=== PATIENT | male | born 1950 | race Caucasian/White ===

== ENCOUNTER → 2017-07-06 | Day surgery (SDC) | payer OTHER ==
[2017-07-01 14:43] VITALS: BMI 25.4
[~2017-07-06] MED LIST: Diprivan 20 ML ONE; Dronedarone HCl 400 MG TAB ONE; Propofol 200 MG/20 ML VIAL ONE
[2017-07-06 07:36] LABS: #Eosinphils 0.3 thou/uL (0.0-0.7); #Lymphocytes 1.2 thou/uL (1.20-3.40); #Monocytes 0.7 thou/uL (0.11-0.59); #Neutrophils 5.7 thou/uL (1.40-6.50); %Basophils 0.3 % (0.0-1.0); %Eosinophils 3.2 % (0.0-10.0); %Lymphocytes 15.5 % (21.0-51.0); %Monocytes 8.6 % (0.0-10.0); Hematocrit 45.1 % (42.0-52.0); Mean Platelet Volume 6.8 fL (7.4-10.4); Red Blood Cell (RBC) Count 4.87 mill/uL (4.70-6.10); White Blood Cell (WBC) Count 7.9 thou/uL (4.8-10.8)
[2017-07-06 07:45] LABS: PTT 38.9 SEC (22.9-36.1); Prothrombin Time 21.3 SEC (12.0-14.7)
[2017-07-06 08:01] LABS: Anion Gap 13 mmol/L (10-20); BUN (Urea Nitrogen) 18 mg/dL (8.4-25.7); Calc. Creatinine Clearance 53 mL/min (70-130); Calcium 9.2 mg/dL (7.8-10.44); Carbon Dioxide 20 mmol/L (23-31); Chloride 104 mmol/L (98-107); Estimated GFR-MDRD 41
--- NOTE | 2017-07-06 10:04 | OP ---
DATE OF SERVICE: 07/06/2017 PROCEDURE: Cardioversion. REASON FOR PROCEDURE: Mr. Bang is a 67-year-old man with prior history of coronary artery disease, d iabetes, hyperlipidemia, also underwent pulmonary venous isolation 02/03/2017 for persistent atrial f ibrillation. Now he has recurrence of atrial arrhythmias. EKG is suggestive of atypical atrial flut ter. He is well anticoagulated with Xarelto without a fail. He is not currently on a rhythm medicat ion. PROCEDURE IN DETAIL: The patient received deep sedation by Anesthesia specialist with propofol. Aft er adequate level of sedation achieved, a synchronized 200 joule shock promptly converted the patient back to sinus rhythm. CONCLUSION: Successful cardioversion. PLAN: Continue Xarelto and patient has a prescription for Multaq 400 twice a day which should be ini tiated, especially if recurrent atrial fibrillation is noted. Monitor for bradycardia. Continue Xarelto again.
== END ==
LOC: CCL 07:01
PROVIDERS: ATTEND Internal Medicine Cardiovascular Disease
DX: I48.1 Persistent atrial fibrillation (principal); I25.10 Atherosclerotic heart disease of native coronary artery without angina pectoris; E11.9 Type 2 diabetes mellitus without complications; E78.5 Hyperlipidemia, unspecified; Z79.51 Long term (current) use of inhaled steroids; Z79.82 Long term (current) use of aspirin; Z79.84 Long term (current) use of oral hypoglycemic drugs; Z79.01 Long term (current) use of anticoagulants; Z79.899 Other long term (current) drug therapy; Z98.890 Other specified postprocedural states
CPT/HCPCS: 36415; 80048; 85025; 85610; 85730; 92960; 93005; 93010; J2704

== ENCOUNTER 2017-08-24 09:54 | Day surgery (SDC) | payer OTHER ==
[2017-08-21 13:26] VITALS: BMI 25.5
[2017-08-24 11:57] LABS: #Eosinphils 0.2 thou/uL (0.0-0.7); #Lymphocytes 1.3 thou/uL (1.20-3.40); #Monocytes 0.8 thou/uL (0.11-0.59); #Neutrophils 5.1 thou/uL (1.40-6.50); %Basophils 0.1 % (0.0-1.0); %Eosinophils 2.9 % (0.0-10.0); %Lymphocytes 17.3 % (21.0-51.0); %Monocytes 10.5 % (0.0-10.0); %Neutrophils 69.2 % (42.0-75.0); Mean Corpuscular HGB CONC 33.4 g/dL (32.0-36.0); Mean Corpuscular Hemoglobin 30.6 pg (27.0-31.0); Mean Corpuscular Volume 91.5 fl (80.0-94.0); Mean Platelet Volume 8.6 fL (7.4-10.4); Platelet Count 226 thou/uL (130-400); RBC Distribution Width 13.9 % (11.5-14.5); Red Blood Cell (RBC) Count 4.24 mill/uL (4.70-6.10); White Blood Cell (WBC) Count 7.4 thou/uL (4.8-10.8)
[2017-08-24 12:08] LABS: INR-International Normal Ratio 1.8; PTT 38.2 SEC (22.9-36.1)
[2017-08-24 13:15] LABS: Chloride 102 mmol/L (98-107); Potassium 5.1 mmol/L (3.5-5.1); Sodium 134 mmol/L (136-145)
[2017-08-24 13:16] LABS: Calcium 9.4 mg/dL (7.8-10.44); Glucose 100 mg/dL (80-115)
[2017-08-24 13:18] LABS: Anion Gap 11 mmol/L (10-20); Carbon Dioxide 26 mmol/L (23-31)
[2017-08-24 13:20] LABS: BUN (Urea Nitrogen) 16 mg/dL (8.4-25.7); Calc. Creatinine Clearance 46 mL/min (70-130); Estimated GFR-MDRD 34
[2017-08-24] MEDS ORDERED: PHENYLEPHRINE-NS 100 MCG/ML 10 ML SYRINGE ONE (14:42)
[2017-08-24] MEDS ORDERED: Diprivan 20 ML ONE (14:42)
--- NOTE | 2017-08-24 17:01 | OP ---
DATE OF PROCEDURE: 08/24/2017 CARDIOVERSION REPORT REFERRING PHYSICIAN: Murray Vásquez M.D. REASON FOR PROCEDURE: Mr. Bang is a 67-year-old man with prior history of persistent atrial fibrilla tion, underwent an ablation procedure in 05/2017, then later had a vascular surgery and his Multaq wa s changed to amiodarone, currently loading with amiodarone 200 mg twice a day. He is on anticoagulat ion with Xarelto without interruption, here for cardioversion. PROCEDURE IN DETAIL: The patient received propofol per Anesthesia specialist. After adequate level of sedation achieved, a synchronized 50 joule shock promptly converted the patient back to sinus rhyt hm. CONCLUSION: Successful cardioversion. PLAN: Continue amiodarone taper and will decrease the amiodarone to 200 mg a day now. Monitor for b radycardia and consider holding metoprolol in case heart rates below 50 beats per minute with symptom s. Continue Xarelto for anticoagulation. Routine followup in our office in 4-6 weeks.
--- NOTE | 2017-08-24 17:54 | EKG ---
Test Reason : PREOP CARDIOVERSION Blood Pressure : / mmHG Vent. Rate : 080 BPM Atrial Rate : 227 BPM P-R Int : 000 ms QRS Dur : 096 ms QT Int : 426 ms P-R-T Axes : 000 044 046 degrees QTc Int : 491 ms Atrial flutter with variable A-V block Prolonged QT Abnormal ECG When compared with ECG of 06-JUL-2017 07:29, (Unconfirmed) QRS duration has decreased Confirmed by NEFTALI OSMAN, SPetra ([id number]) on 08/24/2017 5:53:48 PM Referred By: [facility] Confirmed By:DR. Jocy LINDSAY MD
== END 2017-08-24 16:00 | disposition home or self-care (01) ==
LOC: CCL 09:54
PROVIDERS: ATTEND Internal Medicine Cardiovascular Disease
DX: I48.1 Persistent atrial fibrillation (principal); I48.92 Unspecified atrial flutter; E78.5 Hyperlipidemia, unspecified; E11.9 Type 2 diabetes mellitus without complications; I25.10 Atherosclerotic heart disease of native coronary artery without angina pectoris; Z79.84 Long term (current) use of oral hypoglycemic drugs; Z79.01 Long term (current) use of anticoagulants; Z79.82 Long term (current) use of aspirin; Z79.899 Other long term (current) drug therapy; Z95.818 Presence of other cardiac implants and grafts; Z98.890 Other specified postprocedural states
CPT/HCPCS: 36415; 80048; 85025; 85610; 85730; 92960; 93005; 93010; J2704

== ENCOUNTER 2017-11-03 19:12 | Observation (INO) | payer MEDICARE, OTHER ==
[2017-11-03 19:59] VITALS: BMI 25.2
[2017-11-03] MEDS ORDERED: Atorvastatin Calcium 20 MG TAB PO SCH (21:00)
[2017-11-03] MEDS ORDERED: Dextrose 5% in Water 1,000 ML IV PRN (21:07)
[2017-11-03] MEDS ORDERED: HumaLOG 300 UNITS/3 ML VIAL SC PRN (21:07)
[2017-11-03] MEDS ORDERED: Dextrose 50% Abboject 50 ML SYRINGE IVP PRN (21:07)
[2017-11-03] MEDS ORDERED: Metoprolol Tartrate 50 MG TAB PO SCH (21:15)
[2017-11-03] MEDS: Sodium Chloride 0.9% 1,000 ML IV SCH (21:57)
[2017-11-04] MEDS: Ubidecarenone 50 MG CAP PO SCH (04:37)
[2017-11-04] MEDS: Metoprolol Tartrate 50 MG TAB PO SCH ×2 (04:37→20:57)
[2017-11-04] MEDS: Atorvastatin Calcium 20 MG TAB PO SCH (04:37)
[2017-11-04] MEDS ORDERED: Lidocaine 1% (PF) 30 ML VIAL ONE (06:36)
[2017-11-04] MEDS ORDERED: Nitroglycerin 100MG/250ML BOT 250 ML ONE (07:07)
[2017-11-04] MEDS ORDERED: Verapamil 5 MG/2 ML VIAL ONE (07:07)
[2017-11-04] MEDS ORDERED: Heparin 25,000 units/D5W 0 ML ONE (07:07)
[2017-11-04] MEDS ORDERED: Midazolam HCl 2 mg/2 ml Vial ONE (07:25)
[2017-11-04] MEDS ORDERED: Heparin 10,000 UNITS/1 ML VIAL ONE (07:25)
[2017-11-04] MEDS ORDERED: Fentanyl 250 MCG/5 ML VIAL ONE (07:26)
[2017-11-04] MEDS ORDERED: Clopidogrel Bisulfate 300 MG TAB ONE (07:51)
[2017-11-04] MEDS ORDERED: Milk Of Magnesia 30 ML UDCUP PO PRN (08:34)
[2017-11-04] MEDS ORDERED: Mag-Al 1200 mg/1200 mg/30 ML UDCUP PO PRN (08:34)
[2017-11-04] MEDS ORDERED: Zolpidem Tartrate 5 MG TAB PO PRN (08:34)
[2017-11-04] MEDS ORDERED: traMADol HCl 50 MG TAB PO PRN (08:34)
[2017-11-04] MEDS ORDERED: Sodium Chloride 0.9% 1,000 ML IV SCH (08:45)
[2017-11-04] MEDS ORDERED: Aspirin 81 mg Enteric Coated Tablet PO SCH (09:00)
[2017-11-04] MEDS: Sodium Chloride 0.9% 1,000 ML IV SCH ×3 (09:51→18:36)
[2017-11-04] MEDS: Clopidogrel Bisulfate 75 MG TAB PO SCH (10:15)
[2017-11-04] MEDS ORDERED: cloNIDine 0.1 MG TAB PO PRN (11:51)
[2017-11-04] MEDS ORDERED: Furosemide 20 MG/2 ML VIAL SLOW IVP SCH (14:15)
--- NOTE | 2017-11-04 15:07 | ADD-OP ---
INDICATIONS: Mr. Bang appears to have a severe ostial disease. He had a 60 mm gradient noted with a 5-Mac[place] diagnostic catheter. He decided to proceed with intervention. His JR4 with side holes was then employed. Predilatation performed a 2.5 x 12 mm compliant balloon catheter. This was then fol lowed by 3.0 x 60 mm rebel stent. The patient was on novel oral anticoagulants. There continued to be dampening with the catheter. Post dilatation with 2.5 x 12 mm noncompliant balloon catheter. Thi s was inflated to 12 atmospheres. There continued to be dampening with a sidehole catheter. IVUS wa s then performed. IVUS revealed continued severe stenosis with recoiling and significant calcificati on. New 3.5 x 12 mm balloon catheter was then placed again at the ostium and inflated to 18 atmosphe res. There was much improvement in present. There was IVUS with significant improvement and a minim al luminal area greater than 5. I have decided not to proceed with any further balloon inflation due to heavy calcification in the area and risk of potential dissection. Patient did well during the pr ocedure.
[2017-11-05] MEDS: Acetaminophen/Codeine 30-300mg Tablet PO PRN ×2 (04:34→09:01)
[2017-11-05 06:23] LABS: #Eosinphils 0.3 thou/uL (0.0-0.7); #Lymphocytes 1.1 thou/uL (1.20-3.40); #Monocytes 0.9 thou/uL (0.11-0.59); #Neutrophils 4.6 thou/uL (1.40-6.50); %Basophils 0.3 % (0.0-1.0); %Eosinophils 4.1 % (0.0-10.0); %Lymphocytes 15.5 % (21.0-51.0); %Monocytes 13.5 % (0.0-10.0); %Neutrophils 66.7 % (42.0-75.0); Hemoglobin 12.5 g/dL (14.0-18.0); Mean Corpuscular HGB CONC 32.9 g/dL (32.0-36.0); Mean Corpuscular Hemoglobin 29.3 pg (27.0-31.0); Mean Corpuscular Volume 89.2 fl (80.0-94.0); Mean Platelet Volume 6.9 fL (7.4-10.4); Platelet Count 188 thou/uL (130-400); RBC Distribution Width 14.3 % (11.5-14.5); Red Blood Cell (RBC) Count 4.25 mill/uL (4.70-6.10); White Blood Cell (WBC) Count 6.9 thou/uL (4.8-10.8)
[2017-11-05 06:57] LABS: ALT (SGPT) 14 U/L (8-55); AST (SGOT) 15 U/L (5-34); Albumin 3.3 g/dL (3.4-4.8); Alkaline Phosphatase 87 U/L (40-150); Anion Gap 9 mmol/L (10-20); BUN (Urea Nitrogen) 16 mg/dL (8.4-25.7); Bilirubin, Total 0.5 mg/dL (0.2-1.2); Calc. Creatinine Clearance 64 mL/min (70-130); Calcium 8.8 mg/dL (7.8-10.44); Carbon Dioxide 24 mmol/L (23-31); Chloride 105 mmol/L (98-107); Estimated GFR-MDRD 52; Globulin 2.9 g/dL (2.4-3.5); Glucose 130 mg/dL (80-115); Potassium 4.4 mmol/L (3.5-5.1); Protein, Total 6.2 g/dL (5.8-8.1); Sodium 134 mmol/L (136-145)
[2017-11-05 08:25] VITALS: BP 133/62; TEMP 97.8
[2017-11-05] MEDS: Ubidecarenone 50 MG CAP PO SCH (09:00)
[2017-11-05] MEDS: Clopidogrel Bisulfate 75 MG TAB PO SCH (09:00)
[2017-11-05] MEDS: Atorvastatin Calcium 20 MG TAB PO SCH (09:01)
[2017-11-05] MEDS: Metoprolol Tartrate 50 MG TAB PO SCH (09:01)
--- NOTE | 2017-11-05 09:34 | DIS ---
DATE OF ADMISSION: 11/03/2017 DATE OF DISCHARGE: 11/05/2017 DISCHARGE DIAGNOSES: 1. Shortness of breath. 2. Coronary artery disease. 3. Previous stent placement. PROCEDURE: Coronary angiography with stent placement to the ostial right coronary artery with a 3 x 16 mm rebel stent post-dilated with a 3.5 noncompliant balloon catheter. COMPLICATIONS: None. ESTIMATED BLOOD LOSS: Less than 10 mL. HOSPITAL COURSE: Mr. Bang is a very pleasant 67-year-old gentleman who was admitted one day prior to the procedure for hydration. His initial creatinine was 1.7. His creatinine did decrease on the da y of the procedure. He underwent coronary angiography and was found to have patent stent present. Clayton whitman had severe disease present of the ostial right coronary artery with a 60 mm gradient. A catheter w ith side holes was employed. A 3.0 x 60 mm rebel stent was placed. There continued to be ventricula rization and dampening. Post-dilatation performed x2 with a 3.5 x 12 mm noncompliant balloon cathete r to 18 atmospheres. There was excellent angiographic result at the end of the study. IVUS was also employed. Mr. Bang did complain of shortness of breath after the procedure. He was given one dose of Lasix wit h improvement. He states there may be an anxiety component because of the day of discharge, he felt great. He states he feels better than he has been in the past. DISCHARGE MEDICATIONS: Flonase, Xarelto 20 mg q.a.m., loratadine, glipizide 10 mg b.i.d., lisinopril 5 mg b.i.d., Zantac as prescribed, metoprolol 50 mg b.i.d., atorvastatin 20 mg daily, aspirin [address], Plavix 75 q.a.m. CONDITION AT DISCHARGE: Stable.
--- NOTE | 2017-11-18 22:41 | EKG ---
Test Reason : POST STENT Blood Pressure : / mmHG Vent. Rate : 056 BPM Atrial Rate : 056 BPM P-R Int : 180 ms QRS Dur : 088 ms QT Int : 470 ms P-R-T Axes : 027 065 064 degrees QTc Int : 453 ms Sinus bradycardia Otherwise normal ECG When compared with ECG of 24-AUG-2017 11:51, Sinus rhythm has replaced Atrial flutter Confirmed by Krysta GARDNER ([id number]) on 11/18/2017 10:41:26 PM Referred By: LIN Confirmed By:Krysta GARDNER
--- NOTE | 2017-11-18 22:46 | EKG ---
Test Reason : Blood Pressure : / mmHG Vent. Rate : 063 BPM Atrial Rate : 063 BPM P-R Int : 168 ms QRS Dur : 088 ms QT Int : 462 ms P-R-T Axes : 035 046 056 degrees QTc Int : 472 ms Normal sinus rhythm Normal ECG When compared with ECG of 04-NOV-2017 09:45, (Unconfirmed) No significant change was found Confirmed by Krysta GARDNER ([id number]) on 11/18/2017 10:45:43 PM Referred By: LIN Confirmed By:Krysta GARDNER
== END 2017-11-05 09:57 | disposition home or self-care (01) ==
LOC: 2SW 19:12
PROVIDERS: ADMIT Internal Medicine Cardiovascular Disease; ATTEND Internal Medicine Cardiovascular Disease
DX: R06.02 Shortness of breath (principal); I25.10 Atherosclerotic heart disease of native coronary artery without angina pectoris; I48.91 Unspecified atrial fibrillation; I48.92 Unspecified atrial flutter; E78.5 Hyperlipidemia, unspecified; E11.9 Type 2 diabetes mellitus without complications; Z79.01 Long term (current) use of anticoagulants; Z79.82 Long term (current) use of aspirin; Z79.51 Long term (current) use of inhaled steroids; Z79.84 Long term (current) use of oral hypoglycemic drugs; Z79.899 Other long term (current) drug therapy; Z95.5 Presence of coronary angioplasty implant and graft
CPT/HCPCS: 76942; 80053; 82565 ×2; 82962 ×3; 85025; 85347 ×2; 92928; 92978; 93005 ×2; 93454; 93798; 94640; 96361; 96374; C1725; C1753 ×2; C1760; C1769 ×2; C1876; C1887; G0378; 36415; 36416; 93010; 99152; 99153; A4216; J0153; J1644; J1940; J2001; J2250; J3010; J7620

== ENCOUNTER 2018-03-04 11:16 | Day surgery (SDC) | payer MEDICARE ==
[2018-03-04] MEDS ORDERED: PROPOFOL 20 ML ONE (13:18)
[2018-03-04] MEDS ORDERED: Clopidogrel Bisulfate 75 MG TAB ONE (13:18)
--- NOTE | 2018-03-04 21:38 | OP ---
CARDIOVERSION REPORT REFERRING PHYSICIAN: Dr. Murray Vásquez. PROCEDURE: Mr. Bang is a 68-year-old man with history of atrial arrhythmias, prior ablations, who jack d recurrence off amiodarone, which was stopped in September. and here for cardioversion after r estarting antiarrhythmic regimen Multaq. PROCEDURE: The patient received propofol by Anesthesia specialist. After adequate sedation achieved , 770 joule synchronized shock converted back to sinus rhythm. CONCLUSION: Successful cardioversion. PLAN: Continue Cherise and Richard.
== END 2018-03-04 15:12 | disposition home or self-care (01) ==
LOC: CCL 11:16
PROVIDERS: ATTEND Internal Medicine Cardiovascular Disease
DX: I48.92 Unspecified atrial flutter (principal); I48.91 Unspecified atrial fibrillation; E78.5 Hyperlipidemia, unspecified; I25.10 Atherosclerotic heart disease of native coronary artery without angina pectoris; E11.22 Type 2 diabetes mellitus with diabetic chronic kidney disease; N18.9 Chronic kidney disease, unspecified; Z79.82 Long term (current) use of aspirin; Z79.899 Other long term (current) drug therapy; Z79.01 Long term (current) use of anticoagulants
CPT/HCPCS: 92960; J2704

== ENCOUNTER 2019-02-14 10:27 | Observation (INO) | payer MEDICARE ==
[2019-02-14] MEDS ORDERED: Aspirin Chewable 81 MG TAB ONE (10:51)
[2019-02-14 11:29] LABS: #Eosinphils 0.3 thou/uL (0.0-0.7); #Lymphocytes 1.4 thou/uL (1.20-3.40); #Monocytes 0.7 thou/uL (0.11-0.59); #Neutrophils 4.4 thou/uL (1.40-6.50); %Basophils 0.3 % (0.0-1.0); %Eosinophils 4.4 % (0.0-10.0); %Lymphocytes 20.3 % (21.0-51.0); %Monocytes 10.5 % (0.0-10.0); %Neutrophils 64.6 % (42.0-75.0); Hemoglobin 14.1 g/dL (14.0-18.0); Mean Corpuscular HGB CONC 32.3 g/dL (32.0-36.0); Mean Platelet Volume 7.3 fL (7.4-10.4); Platelet Count 170 thou/uL (130-400); RBC Distribution Width 12.7 % (11.5-14.5); Red Blood Cell (RBC) Count 4.87 mill/uL (4.70-6.10); White Blood Cell (WBC) Count 6.8 thou/uL (4.8-10.8)
--- NOTE | 2019-02-14 11:31 | RAD ---
RADIOGRAPH CHEST 1 VIEW: DATE: 02/14/2019 HISTORY: 68-year-old male with chest pain FINDINGS: There are no airspace densities, pulmonary edema, pneumothorax, or cardiomegaly. The lateral costophr enic angles are sharp. IMPRESSION: No acute cardiopulmonary findings.
[2019-02-14 11:38] LABS: INR-International Normal Ratio 1.6; Prothrombin Time 19.1 SEC (12.0-14.7)
--- NOTE | 2019-02-14 11:38 | PDOC.FPRHP ---
- History of Present Illness Chief Complaint: numbness to right face and right extremities History of Present Illness: 68 y/o white male, with a PMHx of CVA with no residual weakness, A. fib, CAD, and DM 2, presents with numbness to the right side of his body that started this morning at 0300. He states his right face was numb at 0300, he went back to sleep and at 0600 he noticed numbness to his right lower and upper extremity. At this time he took X3, 81 mg Aspirin. The patient denies any slurred speech, blurred vision, headache, or dizziness. He denies any chest pain, shortness of breath or weakness. The patients states he sounded very serious and that's how she knew something was wrong with him. She did not notice and visual sloping of his face or any slurred speech in the patient. The patient first went to [place] emergency room, and was then transferred to [place]. ED Course: CT brain negative. - Allergies/Adverse Reactions Allergies Allergy/AdvReac Type Severity Reaction Status Date / Time No Known Allergies Allergy Verified 01/13/19 14:13 - Home Medications Medication Instructions Recorded Confirmed Type Fluticasone Propionate [Flonase 1 spray EA NARE QPM PRN 04/09/17 01/13/19 History Nasal [place]] Ranitidine HCl [Zantac 75] 150 mg PO DAILY PRN 04/09/17 01/13/19 History glipiZIDE [Glucotrol XL] 20 mg PO BID 04/09/17 01/14/19 History Ubidecarenone [Co Q-10] 100 mg PO QAM 08/21/17 01/14/19 History Vitamin E 1,000 unit PO QAM 08/21/17 01/14/19 History Aspirin [Ecotrin] 81 mg PO DAILY 01/13/19 01/14/19 History Atorvastatin Calcium [Lipitor] 0.5 tab PO HS 01/13/19 01/14/19 History Cyanocobalamin (Vitamin B-12) 1,000 mcg PO DAILY 01/13/19 01/14/19 History [Vitamin B-12] Metoprolol Tartrate 100 mg PO BID 01/13/19 01/14/19 History Naproxen Sodium [Aleve] 220 mg PO BID PRN 01/13/19 01/13/19 History Rivaroxaban [Xarelto] 20 mg PO HS 01/13/19 01/14/19 History Tamsulosin HCl 0.4 mg PO HS 01/13/19 01/13/19 History guaiFENesin ER [Mucinex] 600 mg PO BID PRN 01/13/19 01/13/19 History - History PMHx: A. fib since 2016, CVA in 2013 (no residual weakness or deficits), D.M. II , CAD (X3 stents, most recent 2017), AAA, PSHx: cardiac ablation, stent placement X3, AAA open repair. FHx: father: CAD, Mother: CVA Social: Denies any smoking or drug use. Drinks 2 glasses of scotch X5 nights a week. - Review of Systems General: denies: fever/chills, weight/appetite/sleep changes, fatigue Eyes: denies: eye pain, vision changes ENT: denies: nasal congestion Respiratory: denies: cough, shortness of breath Cardiovascular: denies: chest pain, palpitation Gastrointestinal: denies: vomiting, diarrhea, abdominal pain Musculoskeletal: denies: swelling Neurological: reports: numbness. denies: syncope, seizure, weakness - Vital signs BP: 136/72 HR: 67 RR: 16 Tmax: 97.7 Pox: 100% on RmAir Wt: 91 kg - Physical Exam Constitutional: NAD, awake, alert and oriented, well developed HEENT: normocephalic and atraumatic, PERRLA, EOMI, conjunctiva clear, no scleral icterus, grossly normal vision, grossly normal hearing, MMM Neck: supple, FROM, trachea midline, no JVD, no bruits Chest: no-tender to palpation, no lesions Heart: RRR, normal S1/S2, no murmurs/rubs/gallops, pulses present, no edema Lungs: CTAB, no respiratory distress, good air movement, no rales/rhonchi, no wheezing, no retractions Abdomen: soft, non-tender, bowel sounds present, no masses/distention Musculoskeletal: normal structure, normal tone -Musculoskeletal: right side 4/5 strength Left side 5/5 strength Neurological: CN II-XII intact -Neurological: Decreased sensation to the right face, right upper and lower extremities. Pkbl-ki-rzaw and hugjhl-qb-urjn intact bilaterally. Skin: no rash/lesions, good turgor, capillary refill <2 seconds, no jaundice Heme/Lymphatic: no unusual bruising or bleeding, no purpura, no petechia Psychiatric: normal mood and affect, good judgment and insight, intact recent and remote memory FMR H&P: Results - Labs Result Diagrams: 02/14/19 11:23 02/14/19 11:23 Lab results: WBC 6.8 thou/uL (4.8-10.8) 02/14/19 11:23 Hgb 14.1 g/dL (14.0-18.0) 02/14/19 11:23 Hct 43.8 % (42.0-52.0) 02/14/19 11:23 MCV 90.0 fL (78.0-98.0) 02/14/19 11:23 Plt Count 170 thou/uL (130-400) 02/14/19 11:23 Neutrophils % 64.6 % (42.0-75.0) 02/14/19 11:23 - EKG Interpretation EKG: NSR, rate 65 bpm. - Radiology Interpretation CT scan - head Status: report reviewed by me (no acute process. No acute hemorrhage.) Chest x-ray Status: report reviewed by me (no acute cardiopulmonary process) FMR H&P: A/P - Problem List (1) TIA (transient ischemic attack) Current Visit: Yes Status: Acute Priority: High Code(s): G45.9 - TRANSIENT CEREBRAL ISCHEMIC ATTACK, UNSPECIFIED (2) A-fib Current Visit: Yes Status: Chronic Code(s): I48.91 - UNSPECIFIED ATRIAL FIBRILLATION Qualifiers: Atrial fibrillation type: paroxysmal Qualified Code(s): I48.0 - Paroxysmal atrial fibrillation (3) CKD (chronic kidney disease) stage 3, GFR 30-59 ml/min Current Visit: Yes Status: Chronic Code(s): N18.3 - CHRONIC KIDNEY DISEASE, STAGE 3 (MODERATE) (4) DM (diabetes mellitus) type II controlled with renal manifestation Current Visit: Yes Status: Chronic Code(s): E11.29 - TYPE 2 DIABETES MELLITUS W OTH DIABETIC KIDNEY COMPLICATION Qualifiers: Diabetes mellitus chcf insulin use: without director strategy use Diabetes mellitus complication detail: with chronic kidney disease Chronic kidney disease stage: stage 3 (moderate) Qualified Code(s): E11.22 - Type 2 diabetes mellitus with diabetic chronic kidney disease; N18.3 - Chronic kidney disease, stage 3 (moderate) (5) HTN (hypertension) Current Visit: Yes Status: Chronic Code(s): I10 - ESSENTIAL (PRIMARY) HYPERTENSION Qualifiers: Hypertension type: essential hypertension Qualified Code(s): I10 - Essential (primary) hypertension (6) CAD (coronary atherosclerotic disease) Current Visit: Yes Status: Acute Code(s): I25.10 - ATHSCL HEART DISEASE OF [place] CORONARY ARTERY W/O ANG PCTRS Qualifiers: Coronary Disease-Associated Artery/Lesion type: [place] artery [place] vs. transplanted heart: [place] heart Associated angina: without angina Qualified Code(s): I25.10 - Atherosclerotic heart disease of [place] coronary artery without angina pectoris - Plan 68 y/o male, being admitted to the stoke unit for TIA vs. Stroke r/o. 1. TIA -Most likely secondary from A. fib causing emboli. Paraesthesia of the right face, right upper and lower extremities. -CT brain negative -MRI brain -Carotid doppler US, consider CTA head and neck pending US results. Hold off on CTA right now because of CKD. -Transthroacic echo -fasting morning lipid panel -Continue high dose statin therapy -Continue anticoagulation with Xarelto. -Neuro-checks every 4 hours. 2. A. fib -Controlled, patient is rate controlled in the 60's and currently in NSR. -Continue Xarelto anticoagulation. -Patient is due to have a watchman procedure and ablation done next week. -Continue metoprolol 50 mg daily. 3. CKD stage III -Cr 1.59 -Hydrate orally 4. HTN -Discontinue home lisinopril for now. 5. DM type II -Continue home medications. 6. CAD -Stable -S/P X3 stents 7. Hx of CVA -2014, no residual weakness. -Left side 8. Code Status: Does not want intubation. Cardiac only. 9. DVT PPX: already on xarelto 10. Diet: Carb diet FMR H&P: Upper Level - Pertinent history 68 yo male with PMH of HTN, A-fib, and DM2 presents with one day history of right sided numbness. Patient reports he woke up and his right side felt numb. He then stated that it went away and he felt fine. He was seen in [place] ED and was advised to present to [facility] for further evaluation. While in the waiting room, he began to feel the right sided numbness again. He denies headaches, vision changes, chest pain, or SOB. He does note that this feels similar to his previous CVA in 2013. Please see corporate development intern note above for further documentation. Physical Exam: General: NAD, male appears stated age. CV: RRR, no murmurs Respiratory: CTA, no wheezing Abdomen: Soft non-tender, no distention Extremities: No edema, moves all four extremities Neuro: No focal deficits, Decreased sensation to light touch on right side. Psych: A&Ox3. Appropriate mood. - Plan Date/Time: 02/14/19 1138 I, Jayy Nichols MD, have evaluated this patient and agree with findings/ plan as outlined by corporate development intern resident. Pertinent changes/additions are listed here. # TIA rule out CVA - Hx of previous CVA - CT brain WNL - Neuro Checks - MRI ordered - Carotid Dopplers ordered - ECHO ordered - Will hold on CTA due to renal function # DM - Accuchecks - Continue home meds # CAD - s/p 3 stents - Maximize statin therapy # HTN - Continue home meds # A-fib - Continue home meds - ECHO pending - Continue home Xarelto # CKD - Unknown baseline, but patient self-reports - Monitor BMP - Minimize nephro toxic medications CODE STATUS: Cardiac code with NO intubation Disposition: Stable, will admit to Stroke Observation for further evaluation and management.
[2019-02-14 12:13] LABS: ALT (SGPT) 17 U/L (8-55); AST (SGOT) 15 U/L (5-34); Albumin 3.7 g/dL (3.4-4.8); Alkaline Phosphatase 90 U/L (40-150); Anion Gap 12 mmol/L (10-20); BUN (Urea Nitrogen) 26 mg/dL (8.4-25.7); Bilirubin, Total 0.6 mg/dL (0.2-1.2); CK (CPK) 87 U/L (30-200); Calc. Creatinine Clearance 0 mL/min (70-130); Calcium 8.7 mg/dL (7.8-10.44); Carbon Dioxide 21 mmol/L (23-31); Chloride 106 mmol/L (98-107); Estimated GFR-MDRD 43; Globulin 2.7 g/dL (2.4-3.5); Glucose 127 mg/dL (80-115); Potassium 4.7 mmol/L (3.5-5.1); Protein, Total 6.4 g/dL (5.8-8.1); Sodium 134 mmol/L (136-145)
[2019-02-14 14:00] LABS: Bilirubin Negative (Negative); Blood, Urine Negative (Negative); Glucose, Urine (Dipstick) Negative (Negative); Leukocyte Negative (Negative); Nitrite Negative (Negative); Protein, Urine (Dipstick) 100 mg/dL (Neg-Trace); Urobilinogen 0.2 mg/dL (Less than 2)
[2019-02-14 14:03] LABS: Bacteria/HPF 1+ HPF (None Seen); RBC/HPF 0-3 HPF (0-3); WBC/HPF 0-3 HPF (0-3)
[2019-02-14 14:04] LABS: Clarity Clear (Clear)
[2019-02-14 18:00] VITALS: BMI 24.7
[2019-02-14] MEDS: Atorvastatin Calcium 40 MG TAB PO SCH (22:12)
--- NOTE | 2019-02-14 22:22 | HP ---
HISTORY OF PRESENT ILLNESS: I have examined the patient. I have discussed the case with Dr. Yuliya Diaz and agree with her assessment and plan. Briefly, Mr. Edmond Bang is a very pleasant 68-year-old white male patient, who had a stroke in 2013 that left him with no noticeable deficits. At that time, he said he had weakness on his left side. Over the last several hours, beginning at 3 o'clock this morning, the patient has noticed some numbness on the right side of his body. He had no time he had any problem with vision, movement of arms or legs, or with slurred speech. He had recurrent episodes of this again at about 6 o'clock in the morning and subsequently went to the [place] ER. Evidently at that point he had a noncontrast brain CT and then later drove by private car to our ER. As stated above, he had a previous stroke in 2013 with no noticeable residuals. He has also had AAA repair and stent placement. He is also a type 2 diabetic. PHYSICAL EXAMINATION: GENERAL: Mr. Bang is completely awake, alert, in no distress. He does not demonstrate any facial weakness. He does not demonstrate any noticeable motor weakness of either his left or right upper and lower extremities. No noticeable focal deficits. VITAL SIGNS: His blood pressure is currently 136/72, his heart rate is 66, respirations 16. He is afebrile. His room air pulse ox is 100%. EAR, NOSE, AND THROAT: No facial drooping. Extraocular movements appear normal. Throat without erythema or exudate. NECK: Supple. There is no neck stiffness. CARDIAC: The PMI is in the 5th intercostal space. There is an S4 gallop, but no murmur, or rub noted. LUNGS: Clear without rales or wheezes. He does not demonstrate any use of accessory muscles or respiratory distress. ABDOMEN: Flat, soft, without guarding, rebound, or rigidity. EXTREMITIES: No edema. NEUROLOGIC: Again, there are no focal deficits. There is no motor weakness. LABORATORY DATA: CBC; white count is 6800, his hemoglobin is 14.1, his hematocrit is 43.8 with an MCV of 90. Chemistries; sodium 134, potassium 4.7, chloride 106, bicarb 21, BUN 26, creatinine 1.59 with a GFR of 43. Glucose is 127. Liver enzymes are normal. Urinalysis is clear. INR is 1.6. ASSESSMENT: Transient ischemic attack. PLAN: Mr. Bang is currently neurologically and hemodynamically stable. He is well beyond the window for tPA and in the event, had intermittent TIA type symptoms rather than a edsirae stroke. We will reinstitute his medications, which include Xarelto and metoprolol as well as atorvastatin and aspirin. We will get an MRI and carotid Dopplers. If there is any evidence of significant occlusion on the carotid Doppler studies, we may hydrate him well and get a CTA of the head, neck, but at this point, we will get carotid Dopplers. Continue to do neuro vital checks. We will consult with Neurology as well. Job ID: [id number]
[2019-02-15] MEDS ORDERED: Fluticasone Propionate Nasal Spray 16 gm Bottle NASAL PRN (01:34)
[2019-02-15] MEDS ORDERED: Famotidine 20 MG TAB PO PRN (01:34)
[2019-02-15] MEDS ORDERED: guaiFENesin ER 600 MG TAB PO PRN (01:34)
--- NOTE | 2019-02-15 06:01 | PDOC.FM ---
- Subjective Subjective: Patient states this morning that his sensation is slightly better on his right side. He denies any palpitations, ONOFRE, CP, or SOB. He states that Dr. Henderson's office double his metoprolol to 100mg at his last visit, and did not report that to us by mistake yesterday. - Objective MAR Reviewed: Yes Vital Signs & Weight: Vital Signs (12 hours) Temp Pulse Resp BP Pulse Ox 02/15/19 04:00 97.5 F L 67 16 152/90 H 95 02/15/19 00:00 97.6 F 65 16 145/82 H 95 02/14/19 20:00 97.5 F L 72 16 158/97 H 95 Weight Weight 87.317 kg Result Diagrams: 02/14/19 11:23 02/15/19 05:35 Additional Labs: triglycerides, 120 Tcholesterol 143 LDL 85 HDL 35 Phys Exam - Physical Examination Constitutional: NAD HEENT: PERRLA, moist MMs, sclera anicteric Neck: no nodes, no JVD, supple, full ROM Respiratory: no wheezing, no rales, no rhonchi, clear to auscultation bilateral Cardiovascular: RRR, no significant murmur, no rub Gastrointestinal: soft, non-tender, no distention, positive bowel sounds Musculoskeletal: no edema, pulses present Neurological: moves all 4 limbs right sided decreased facial and exrtremity sensation Psychiatric: normal affect, A&O x 3 Skin: no rash, normal turgor, cap refill <2 seconds Dx/Plan (1) TIA (transient ischemic attack) Code(s): G45.9 - TRANSIENT CEREBRAL ISCHEMIC ATTACK, UNSPECIFIED Status: Acute (2) A-fib Code(s): I48.91 - UNSPECIFIED ATRIAL FIBRILLATION Status: Chronic Qualifiers: Atrial fibrillation type: paroxysmal Qualified Code(s): I48.0 - Paroxysmal atrial fibrillation (3) CKD (chronic kidney disease) stage 3, GFR 30-59 ml/min Code(s): N18.3 - CHRONIC KIDNEY DISEASE, STAGE 3 (MODERATE) Status: Chronic (4) DM (diabetes mellitus) type II controlled with renal manifestation Code(s): E11.29 - TYPE 2 DIABETES MELLITUS W OTH DIABETIC KIDNEY COMPLICATION Status: Chronic Qualifiers: Diabetes mellitus fdc insulin use: without manager long term care use Diabetes mellitus complication detail: with chronic kidney disease Chronic kidney disease stage: stage 3 (moderate) Qualified Code(s): E11.22 - Type 2 diabetes mellitus with diabetic chronic kidney disease; N18.3 - Chronic kidney disease, stage 3 (moderate) (5) HTN (hypertension) Code(s): I10 - ESSENTIAL (PRIMARY) HYPERTENSION Status: Chronic Qualifiers: Hypertension type: essential hypertension Qualified Code(s): I10 - Essential (primary) hypertension (6) CAD (coronary atherosclerotic disease) Code(s): I25.10 - ATHSCL HEART DISEASE OF [place] CORONARY ARTERY W/O ANG PCTRS Status: Acute Qualifiers: Coronary Disease-Associated Artery/Lesion type: [place] artery [place] vs. transplanted heart: [place] heart Associated angina: without angina Qualified Code(s): I25.10 - Atherosclerotic heart disease of [place] coronary artery without angina pectoris - Plan Plan: 68 y/o male admitted to Obs for TIA, stroke R/O. 1. TIA -Most likely secondary from A. fib causing emboli. Paraesthesia of the right face, right upper and lower extremities improved slightly today, but still present. -CT brain negative -MRI brain to be done today -Carotid doppler US to be done today, consider CTA head and neck pending US results. Hold off on CTA right now because of CKD. -Transthroacic echo to be done today -fasting morning lipid panel: Tri 120, TChol 143, LDL 85, HDL 35. -Continue high dose statin therapy -Continue anticoagulation with Xarelto. -Neuro-checks every 4 hours. 2. A. fib -Controlled, patient is rate controlled in the 60's and currently in NSR. -Continue Xarelto anticoagulation. -Patient is due to have a watchman procedure and ablation done next week. -Continue metoprolol 50 mg daily. 3. CKD stage III -Cr 1.59 --> 1.46 -Hydrate orally 4. HTN -Continue to hold BP medication -BP range overnight 158/97 -143/84 5. DM type II -Continue home medications. 6. CAD -Stable -S/P X3 stents 7. Hx of CVA -2013, no residual weakness. -Left side 8. Code Status: Does not want intubation. Cardiac only. Disposition: Stable
[2019-02-15 06:08] LABS: Anion Gap 11 mmol/L (10-20); BUN (Urea Nitrogen) 26 mg/dL (8.4-25.7); Calc. Creatinine Clearance 58 mL/min (70-130); Calcium 9.5 mg/dL (7.8-10.44); Carbon Dioxide 23 mmol/L (23-31); Cardiac Risk 4.2 (Less than 4.5); Chloride 105 mmol/L (98-107); Cholesterol 143 mg/dl (< 200 Desired); Estimated GFR-MDRD 48; Glucose 140 mg/dL (80-115); HDL Cholesterol 34 mg/dL (>60 Neg Risk); LDL Cholesterol, Calculated 85 mg/dL; Potassium 4.8 mmol/L (3.5-5.1); Sodium 134 mmol/L (136-145); Triglycerides 120 mg/dL (Less than 150)
--- NOTE | 2019-02-15 08:31 | ULT ---
BILATERAL CAROTID DUPLEX ULTRASOUND: HISTORY: TIA TECHNIQUE: Grayscale, color-flow and spectral Doppler ultrasound imaging of the extracranial carotid artery syst ems and vertebral arteries was performed bilaterally. FINDINGS: There is mild atherosclerotic plaque involving the distal common carotid arteries and proximal left i nternal carotid artery. The peak systolic velocity in the right ICA measures 63.8 cm/s. The peak systolic velocity in the ri ght CCA measures 68.4 cm/s. The peak systolic velocity in the left ICA measures 67.0 cm/s. The peak systolic velocity in the l eft CCA measures 79.0 cm/s. The right IC/CC ration is0.93. The left IC/CC ratio is 0.85. Vertebral flow: antegrade, bilaterally. . IMPRESSION: No hemodynamically significant stenosis of
[2019-02-15] MEDS ORDERED: Metoprolol Tartrate 100 MG TAB PO SCH (09:00)
[2019-02-15] MEDS ORDERED: Aspirin 81 mg Enteric Coated Tablet PO SCH (09:00)
[2019-02-15] MEDS ORDERED: Lisinopril 10 MG TAB PO SCH (09:00)
[2019-02-15] MEDS: Cyanocobalamin (Vitamin B-12) 1,000 MCG TAB PO SCH (09:26)
[2019-02-15] MEDS: Vitamin E 400 UNITS CAP PO SCH (09:26)
[2019-02-15] MEDS: Ubidecarenone 50 MG CAP PO SCH (09:27)
[2019-02-15] MEDS: Aspirin 81 mg Enteric Coated Tablet PO SCH (09:27)
[2019-02-15] MEDS ORDERED: Lorazepam 2 MG/ML VIAL SLOW IVP SCH (10:26)
--- NOTE | 2019-02-15 12:18 | PRG ---
DATE OF SERVICE: 02/15/2019 Mr. Bang is sitting in bed and in no distress. His carotid Doppler study shows no hemodynamically significant lesion. We are awaiting an MRI to be done later today. In the event clinically, hemodynamically and neurologically, he is stable and at baseline. We will increase his atorvastatin to 80 mg a day and continue his other medical regimens. Job ID: [id number]
--- NOTE | 2019-02-15 12:37 | MRI ---
Exam: Brain MRI without contrast HISTORY: Transient ischemic attack COMPARISON: 07/06/2012 FINDINGS: Calvarial marrow signal intensity: Appropriate T1 signal Gradient echo sequence: No hemorrhage Brain parenchyma: No mass, mass effect or midline shift. Brain volume, age-appropriate. Stable small foci of gliosis in the left and right frontal lobes, near the vertex. Cortical acevedo-white matter differentiation: Preserved Restricted diffusion: Central arterial flow voids are maintained. Absent restricted diffusion White matter signal intensities:No significant T2 or FLAIR white matter hyperintensities. Sinuses: Adequate aeration of the paranasal sinuses and mastoid air cells. IMPRESSION: 1. Absent restricted diffusion. No acute infarct. 2. No significant interval change. Stable gliotic change in the left and right frontal subcortical wh ite matter.
[2019-02-15] MEDS ORDERED: Metoprolol Tartrate 50 MG TAB PO SCH (15:30)
[2019-02-15] MEDS ORDERED: Atorvastatin Calcium 20 MG TAB PO SCH (21:00)
[2019-02-15] MEDS ORDERED: Naproxen 500 MG TAB PO PRN (21:00)
[2019-02-15] MEDS ORDERED: Atorvastatin Calcium 10 MG TAB PO SCH (21:00)
[2019-02-15] MEDS ORDERED: Tamsulosin HCl 0.4 MG CAP PO SCH (21:00)
[2019-02-15] MEDS ORDERED: Rivaroxaban 15 MG TAB PO SCH (21:00)
[2019-02-15] MEDS: Metoprolol Tartrate 100 MG TAB PO SCH (21:22)
[2019-02-15] MEDS: Atorvastatin Calcium 40 MG TAB PO SCH (23:54)
--- NOTE | 2019-02-16 05:42 | PDOC.FM ---
- Subjective Subjective: Patient states he rested well last night and that he felt some palpitations early in the night. He thinks his decreased sensation is better now. Tele: A. fib converted to NSR at 23:55. was rate in 60-80's the rest of the night. - Objective MAR Reviewed: Yes Vital Signs & Weight: Vital Signs (12 hours) Temp Pulse Resp BP Pulse Ox 02/16/19 04:00 97.8 F 62 18 121/82 94 L 02/16/19 00:00 97.5 F L 68 18 130/84 96 02/15/19 20:00 98.4 F 71 18 140/93 H 94 L Weight Weight 87.317 kg I&O: 02/14/19 02/15/19 02/16/19 06:59 06:59 06:59 Intake Total 465 Output Total 500 Balance -35 Result Diagrams: 02/14/19 11:23 02/15/19 05:35 Phys Exam - Physical Examination Constitutional: NAD HEENT: PERRLA, moist MMs, sclera anicteric, oral pharynx no lesions Neck: no nodes, no JVD, supple, full ROM Respiratory: no wheezing, no rales, no rhonchi, clear to auscultation bilateral Cardiovascular: RRR, no significant murmur, no rub Gastrointestinal: soft, non-tender, no distention, positive bowel sounds Musculoskeletal: no edema, pulses present Neurological: non-focal, moves all 4 limbs very slight deviation of right sided sensation, decreased compared to left. Psychiatric: normal affect, A&O x 3 Skin: no rash, normal turgor, cap refill <2 seconds Dx/Plan (1) TIA (transient ischemic attack) Code(s): G45.9 - TRANSIENT CEREBRAL ISCHEMIC ATTACK, UNSPECIFIED Status: Acute (2) A-fib Code(s): I48.91 - UNSPECIFIED ATRIAL FIBRILLATION Status: Chronic Qualifiers: Atrial fibrillation type: paroxysmal Qualified Code(s): I48.0 - Paroxysmal atrial fibrillation (3) CKD (chronic kidney disease) stage 3, GFR 30-59 ml/min Code(s): N18.3 - CHRONIC KIDNEY DISEASE, STAGE 3 (MODERATE) Status: Chronic (4) DM (diabetes mellitus) type II controlled with renal manifestation Code(s): E11.29 - TYPE 2 DIABETES MELLITUS W OTH DIABETIC KIDNEY COMPLICATION Status: Chronic Qualifiers: Diabetes mellitus intermediate manager insulin use: without snf use Diabetes mellitus complication detail: with chronic kidney disease Chronic kidney disease stage: stage 3 (moderate) Qualified Code(s): E11.22 - Type 2 diabetes mellitus with diabetic chronic kidney disease; N18.3 - Chronic kidney disease, stage 3 (moderate) (5) HTN (hypertension) Code(s): I10 - ESSENTIAL (PRIMARY) HYPERTENSION Status: Chronic Qualifiers: Hypertension type: essential hypertension Qualified Code(s): I10 - Essential (primary) hypertension (6) CAD (coronary atherosclerotic disease) Code(s): I25.10 - ATHSCL HEART DISEASE OF [place] CORONARY ARTERY W/O ANG PCTRS Status: Acute Qualifiers: Coronary Disease-Associated Artery/Lesion type: [place] artery [place] vs. transplanted heart: [place] heart Associated angina: without angina Qualified Code(s): I25.10 - Atherosclerotic heart disease of [place] coronary artery without angina pectoris - Plan Plan: 1. TIA -Most likely secondary from A. fib causing emboli. Paraesthesia of the right face, right upper and lower extremities improved today. -CT brain negative -MRI brain no acute infarct. -Carotid doppler US: no significant stenosis. -Transthroacic echo done this morning. Will discharge patient today and call with results. -fasting morning lipid panel: Tri 120, TChol 143, LDL 85, HDL 35. -Continue high dose statin therapy: 80 mg Atorvastatin -Continue anticoagulation with Xarelto. 2. A. fib -paroxysmal. patient had a run of A. fib yesterday, rate in the upper 90's. -Continue Xarelto anticoagulation. -Patient is due to have a watchman procedure and ablation done next week. -restart home dose of metoprolol 100 mg daily. 3. CKD stage III -Cr 1.59 --> 1.46 -Hydrate orally 4. HTN -restart home BP medications 5. DM type II -Continue home medications. -Blood glucose ranges 150-200 6. CAD -Stable -S/P X3 stents 7. Hx of CVA -2013, no residual weakness. -Left side 8. Code Status: Does not want intubation. Cardiac only. Disposition: Stable, will plan to Discharge home today after TT Echo done this morning. Addendum - Attending - Attending Attestation Date/Time: 02/16/19 [id number] I personally evaluated the patient and discussed the management with Dr. Haider. I agree with the History, Examination, Assessment and Plan documented above with any addition or exceptions noted below. Patient doing well this morning and denies complaints. Reported deficits resolved. MRI negative for CVA. His doppler studies were also normal. He is on correct medications and OAC for his Afib and has outpatient therapy planned next week for this. We have increased his statin therapy but he is otherwise stable for discharge today with further outpatient followup.
[2019-02-16 07:47] VITALS: BP 139/81
[2019-02-16] MEDS: Vitamin E 400 UNITS CAP PO SCH (08:26)
[2019-02-16] MEDS: Ubidecarenone 50 MG CAP PO SCH (08:28)
[2019-02-16] MEDS: Metoprolol Tartrate 100 MG TAB PO SCH (08:29)
[2019-02-16] MEDS: Aspirin 81 mg Enteric Coated Tablet PO SCH (08:29)
[2019-02-16] MEDS: Cyanocobalamin (Vitamin B-12) 1,000 MCG TAB PO SCH (08:29)
[2019-02-16] MEDS ORDERED: Lisinopril 10 MG TAB PO SCH (09:00)
[2019-02-16 11:57] VITALS: TEMP 98.1
--- NOTE | 2019-02-17 11:32 | DIS ---
DATE OF ADMISSION: 02/14/2019 DATE OF DISCHARGE: 02/16/2019 CONSULTS: None. PROCEDURES: None. DIAGNOSES: 1. Transient ischemic attack. 2. Atrial fibrillation. 3. Chronic kidney disease, stage 3. 4. Diabetes mellitus type 2, controlled. 5. Hypertension. 6. Coronary artery disease. DISCHARGE MEDICATIONS: 1. Aspirin 81 mg daily. 2. Vitamin B12. 3. Fluticasone spray. 4. Glipizide 20 mg p.o. b.i.d. 5. Guaifenesin 600 mg p.o. b.i.d. 6. Naproxen 220 mg p.o. b.i.d. p.r.n. 7. Ranitidine 150 mg p.o. daily p.r.n. 8. Rivaroxaban 15 mg p.o. at bedtime. 9. Tamsulosin 0.4 mg p.o. at bedtime. 10. CoQ10 of 100 mg p.o. q.a.m. 11. Vitamin E. 12. Atorvastatin 80 mg daily. 13. Lisinopril 10 mg daily. 14. Metoprolol tartrate 100 mg p.o. b.i.d. HPI/HOSPITAL COURSE: Mr. Bang is a 68-year-old male with a past medical history of atrial fibrillation for about 3 years, going for a Watchman procedure and ablation next week with Dr. Aguila in [place], [place] and Dr. Vásquez as his visual communications instructor; also has a history of CAD, status post stent 3 years ago; diabetes mellitus type 2; and CVA in 2013. He came into the emergency department on 02/14 with a new onset right upper extremity, right lower extremity, and right face numbness that had started earlier that morning. He woke about 3 a.m. with this numbness, went back to sleep and later noticed around 6 a.m. that numbness had not resolved. The patient went to the emergency department and the numbness began to go away, but symptoms began to come back. The patient denies any weakness, slurred speech, headache, chest pain, or shortness of breath. In the ED, the patient's CT head was negative, no acute finding. The patient states that he is compliant with his Xarelto therapy for his atrial fibrillation. The patient's blood pressure was 141/76, heart rate of 60, respiratory rate of 16, oxygen saturation 96% on room air, and temp of 97.8 upon admission. The patient denied having any changes in his vision, any dizziness, or any recent illness. The patient's creatinine was 1.59 upon admission. Chest x-ray showed no acute cardiopulmonary findings in the ED. The patient was admitted to the stroke floor for observation and an MRI of head was ordered, echo transthoracic, carotid Doppler, and fasting lipid panel. Results of those, the brain MRI was normal; echo results pending, we will call the patient with final results; carotid Doppler showed no significant stenosis; and lipid panel, LDL was 85, HDL 35, total cholesterol 143, and triglycerides 120. The patient had paroxysmal atrial fibrillation throughout the hospital course. Most of the time he was normal sinus rhythm in rate of 60 to 80. The patient was discharged with a final diagnosis of TIA with acute stroke ruled out. The plan now is to maximize medical management by increasing his atorvastatin to 80 mg daily to high-dose therapy. Follow up outpatient with primary care. Please send report to Dr. De La Torre, [facility], [place] and also Dr. Vásquez, Cardiology. Results of the echo are pending. DISPOSITION: The patient is stable. DISCHARGE INSTRUCTIONS: 1. Location: Home. 2. Diet: Heart healthy diet. 3. Activity: Ad sandra. 4. Followup: Follow up with primary care Dr. De La Torre. and also Cardiology, Dr. Vásquez. Job ID: [id number] MTDD
--- NOTE | 2019-02-17 12:14 | DIS ---
DATE OF ADMISSION: 02/14/2019 DATE OF DISCHARGE: 02/16/2019 CONSULTS: None. PROCEDURES: None. DIAGNOSES: 1. Transient ischemic attack. 2. Atrial fibrillation. 3. Chronic kidney disease, stage 3. 4. Diabetes mellitus type 2, controlled. 5. Hypertension. 6. Coronary artery disease. DISCHARGE MEDICATIONS: 1. Aspirin 81 mg daily. 2. Vitamin B12. 3. Fluticasone spray. 4. Glipizide 20 mg p.o. b.i.d. 5. Guaifenesin 600 mg p.o. b.i.d. 6. Naproxen 220 mg p.o. b.i.d. p.r.n. 7. Ranitidine 150 mg p.o. daily p.r.n. 8. Rivaroxaban 15 mg p.o. at bedtime. 9. Tamsulosin 0.4 mg p.o. at bedtime. 10. CoQ10 of 100 mg p.o. q.a.m. 11. Vitamin E. 12. Atorvastatin 80 mg daily. 13. Lisinopril 10 mg daily. 14. Metoprolol tartrate 100 mg p.o. b.i.d. HPI/HOSPITAL COURSE: Mr. Bang is a 68-year-old male with a past medical history of atrial fibrillation for about 3 years, going for a Watchman procedure and ablation next week with Dr. Aguila in [place], [place] and Dr. Vásquez as his esl tutor; also has a history of CAD, status post stent 3 years ago; diabetes mellitus type 2; and CVA in 2013. He came into the emergency department on 02/14 with a new onset right upper extremity, right lower extremity, and right face numbness that had started earlier that morning. He woke about 3 a.m. with this numbness, went back to sleep and later noticed around 6 a.m. that numbness had not resolved. The patient went to the emergency department and the numbness began to go away, but symptoms began to come back. The patient denies any weakness, any slurred speech, any headache, any chest pain, or shortness of breath. In the ED, the patient's CT head was negative, no acute finding. The patient states that he is complaint with his Xarelto therapy for his atrial fibrillation. The patient's blood pressure was 141/76, heart rate of 60, respiratory rate of 16, oxygen saturation 96% on room air, and temp of 97.8 upon admission. The patient denied having any changes in his vision, any dizziness, or any recent illness. The patient's creatinine was 1.59 upon admission. Chest x-ray showed no acute cardiopulmonary findings in the ED. The patient was admitted to the stroke floor for observation and an MRI of head was ordered, echo transthoracic, carotid Doppler, and fasting lipid panel. Results of those, the brain MRI was normal; echo results pending, we will call the patient with final results; carotid Doppler showed no significant stenosis; and lipid panel, LDL was 85, HDL 35, total cholesterol 143, and triglycerides 120. The patient had paroxysmal atrial fibrillation throughout the hospital course. Most of the time he was normal sinus rhythm in rate of 60 to 80. The patient was discharged with a final diagnosis of TIA with acute stroke ruled out. The plan now is to just maximize medical management by increasing his atorvastatin to 80 mg daily to high-dose therapy. Follow up outpatient with primary care. Please send report to Dr. De La Torre, [facility], [place] and also Dr. Vásquez, Cardiology. Results of the echo are pending. DISPOSITION: The patient is stable. DISCHARGE INSTRUCTIONS: 1. Location: Home. 2. Diet: Heart healthy diet. 3. Activity: Ad sandra. 4. Followup: Follow up with primary care Dr. De La Torre. and also Cardiology, Dr. Vásquez. Job ID: [id number]
--- NOTE | 2019-02-19 13:13 | EKG ---
Test Reason : Blood Pressure : / mmHG Vent. Rate : 065 BPM Atrial Rate : 065 BPM P-R Int : 170 ms QRS Dur : 096 ms QT Int : 442 ms P-R-T Axes : 033 030 052 degrees QTc Int : 459 ms Normal sinus rhythm Normal ECG Confirmed by ERYN OSMAN, CHANDNI ([id number]), assistant editor DARLIN VELAZQUEZ ([id number]) on 02/19/2019 1:13:08 PM Referred By: Confirmed By:CHANDNI CERNA MD
== END 2019-02-16 13:25 | disposition home or self-care (01) ==
LOC: ERS 10:27 → ERHOLD 11:01 → 2SE 16:55
PROVIDERS: ADMIT Family Medicine; ATTEND Family Medicine
DX: G45.9 Transient cerebral ischemic attack, unspecified (principal); I48.0 Paroxysmal atrial fibrillation; I12.9 Hypertensive chronic kidney disease with stage 1 through stage 4 chronic kidney disease, or unspecified chronic kidney disease; E11.22 Type 2 diabetes mellitus with diabetic chronic kidney disease; N18.3 Chronic kidney disease, stage 3 (moderate); I25.10 Atherosclerotic heart disease of native coronary artery without angina pectoris; Z86.73 Personal history of transient ischemic attack (TIA), and cerebral infarction without residual deficits; Z95.5 Presence of coronary angioplasty implant and graft; Z79.01 Long term (current) use of anticoagulants; Z79.84 Long term (current) use of oral hypoglycemic drugs; Z79.82 Long term (current) use of aspirin; Z79.899 Other long term (current) drug therapy
CPT/HCPCS: 70551; 71045; 80048; 80053; 80061; 82550; 82962 ×3; 85025; 85610; 85730; 93005; 93306; 93880; 94760; 96374; 99285; G0378 ×2; 36415; 36416; 81003; 81015; J2060

== ENCOUNTER 2019-08-07 20:30 | Outpatient (CLI) | payer MEDICARE, OTHER | END 2019-08-07 20:31 | disposition home or self-care (01) | LOC: SLEEPLAB 20:30 | PROVIDERS: ATTEND Internal Medicine | DX: G47.33 Obstructive sleep apnea (adult) (pediatric) (principal); R53.83 Other fatigue; R51 Headache; R06.83 Snoring; R35.1 Nocturia; I10 Essential (primary) hypertension; E11.9 Type 2 diabetes mellitus without complications; I63.9 Cerebral infarction, unspecified | CPT/HCPCS: 95811 ==

== ENCOUNTER 2019-08-15 06:18 | Day surgery (SDC) | payer MEDICARE ==
[2019-08-12 16:36] VITALS: BMI 25.7
[2019-08-15 07:24] LABS: #Eosinphils 0.3 thou/uL (0.0-0.7); #Lymphocytes 1.2 thou/uL (1.20-3.40); #Monocytes 0.8 thou/uL (0.11-0.59); #Neutrophils 5.8 thou/uL (1.40-6.50); %Basophils 0.1 % (0.0-1.0); %Eosinophils 3.4 % (0.0-10.0); %Monocytes 9.8 % (0.0-10.0); %Neutrophils 71.7 % (42.0-75.0); Mean Corpuscular HGB CONC 33.8 g/dL (32.0-36.0); Mean Corpuscular Hemoglobin 30.9 pg (27.0-31.0); Mean Corpuscular Volume 91.2 fL (78.0-98.0); Platelet Count 161 thou/uL (130-400); RBC Distribution Width 11.9 % (11.5-14.5); Red Blood Cell (RBC) Count 4.55 mill/uL (4.70-6.10); White Blood Cell (WBC) Count 8.1 thou/uL (4.8-10.8)
[2019-08-15 07:26] LABS: Anion Gap 14 mmol/L (10-20); BUN (Urea Nitrogen) 30 mg/dL (8.4-25.7); Calc. Creatinine Clearance 41 mL/min (70-130); Calcium 8.9 mg/dL (7.8-10.44); Carbon Dioxide 21 mmol/L (23-31); Chloride 104 mmol/L (98-107); Estimated GFR-MDRD 31; Glucose 148 mg/dL (83-110); Potassium 4.9 mmol/L (3.5-5.1); Sodium 134 mmol/L (136-145)
[2019-08-15 07:38] LABS: INR-International Normal Ratio 1.2; PTT 35.3 SEC (22.9-36.1); Prothrombin Time 15.4 SEC (12.0-14.7)
[2019-08-15] MEDS ORDERED: PROPOFOL 20 ML ONE (07:40)
--- NOTE | 2019-08-15 09:30 | OP ---
DATE OF PROCEDURE: 08/15/2019 PROCEDURE PERFORMED: External cardioversion. ADDITIONAL REFERRING PHYSICIAN: Courtney De La Torre MD REASON FOR PROCEDURE: Mr. Bang is a 69-year-old man with prior history of recurrent atrial arrhythmias. He underwent ablation most recently on 02/23/2019. He also has a left atrial appendage surgical clipping with adequate closure in the past, currently though back in anticoagulation without issues. Cardioversion was performed to restore sinus rhythm. DESCRIPTION OF PROCEDURE: The patient received propofol by anesthesia specialist. After adequate level of sedation achieved, a synchronized 70-joule shock promptly converted the patient back to sinus rhythm, rate and rhythm about 160 beats per minute. The patient tolerated the procedure well. CONCLUSION: Successful cardioversion of an atypical atrial flutter to sinus rhythm. PLAN: Continue current medication regimen of anticoagulants. Consider re-ablation versus amiodarone if symptomatic recurrences are seen and consider stopping oral anticoagulants at next visit. Job ID: [id number]
--- NOTE | 2019-08-16 11:04 | EKG ---
Test Reason : PREOP Blood Pressure : / mmHG Vent. Rate : 082 BPM Atrial Rate : 082 BPM P-R Int : 244 ms QRS Dur : 076 ms QT Int : 374 ms P-R-T Axes : 078 049 078 degrees QTc Int : 436 ms Sinus rhythm with 1st degree A-V block with Premature atrial complexes in a pattern of bigeminy Nonspecific ST abnormality Abnormal ECG When compared with ECG of 14-FEB-2019 10:34, Premature atrial complexes are now Present [place] interval has increased ST elevation now present in Inferior leads Confirmed by DR. Terrence CROCKER ([id number]) on 08/16/2019 11:04:21 AM Referred By: [facility] Confirmed By:DR. Terrence CROCKER
--- NOTE | 2019-08-16 11:05 | EKG ---
Test Reason : POST CARDIOVERSION Blood Pressure : / mmHG Vent. Rate : 061 BPM Atrial Rate : 061 BPM P-R Int : 178 ms QRS Dur : 090 ms QT Int : 450 ms P-R-T Axes : 009 051 063 degrees QTc Int : 453 ms Normal sinus rhythm Normal ECG When compared with ECG of 15-AUG-2019 07:15, (Unconfirmed) Premature atrial complexes are no longer Present TN interval has decreased Confirmed by DR. Terrence CROCKER ([id number]) on 08/16/2019 11:04:58 AM Referred By: [facility] Confirmed By:DR. Terrence CROCKER
== END 2019-08-15 08:45 | disposition home or self-care (01) ==
LOC: SDC 06:18
PROVIDERS: ATTEND Internal Medicine Cardiovascular Disease
PROC: 5A2204Z Restoration of Cardiac Rhythm, Single (ICD-10-PCS; principal; 2019-08-15)
DX: I48.4 Atypical atrial flutter (principal); I48.19 Other persistent atrial fibrillation; I12.9 Hypertensive chronic kidney disease with stage 1 through stage 4 chronic kidney disease, or unspecified chronic kidney disease; E11.22 Type 2 diabetes mellitus with diabetic chronic kidney disease; N18.9 Chronic kidney disease, unspecified; E78.5 Hyperlipidemia, unspecified; I25.10 Atherosclerotic heart disease of native coronary artery without angina pectoris; I42.9 Cardiomyopathy, unspecified; Z79.01 Long term (current) use of anticoagulants; Z79.82 Long term (current) use of aspirin; Z79.84 Long term (current) use of oral hypoglycemic drugs; Z79.899 Other long term (current) drug therapy; Z86.73 Personal history of transient ischemic attack (TIA), and cerebral infarction without residual deficits; Z88.8 Allergy status to other drugs, medicaments and biological substances
CPT/HCPCS: 36415; 80048; 85025; 85610; 85730; 92960; 93005; 93010; J2704

== ENCOUNTER 2020-06-12 06:52 | Outpatient (CLI) | payer OTHER ==
[2020-06-12 11:41] LABS: Hemoglobin 13.4 g/dL (14.0-18.0); Mean Corpuscular HGB CONC 33.7 G/DL (32.0-36.0); Mean Corpuscular Hemoglobin 30.1 PG (27.0-33.0); Mean Corpuscular Volume 89.4 fl (80.0-100.0); Platelet Count 171 10x3/uL (130-400); RBC Distribution Width 12.6 % (11.5-14.5); Red Blood Cell (RBC) Count 4.45 10x6/uL (4.40-5.80); White Blood Cell (WBC) Count 7.4 10x3/uL (4.5-11.0)
[2020-06-12 11:56] LABS: Anion Gap 17 mmol/L (10-20); BUN (Urea Nitrogen) 36 mg/dL (8.4-25.7); Calc. Creatinine Clearance 0 mL/min (70-130); Calcium 8.8 mg/dL (7.8-10.44); Carbon Dioxide 18 mmol/L (23-31); Chloride 103 mmol/L (98-107); Estimated GFR-MDRD 28; Glucose 169 mg/dL (83-110); Potassium 5.2 mmol/L (3.5-5.1); Sodium 133 mmol/L (136-145)
[2020-06-13 12:57] LABS: SARS-CoV-2 MS2 Positive; SARS-CoV-2 N Gene Negative; SARS-CoV-2 S Gene Negative; SARS-CoV-2 by NAA Not Detected (NotDetected); SARS-CoV-2 orf1ab Negative
== END 2020-06-12 06:53 | disposition home or self-care (01) ==
LOC: LABBT 06:52
PROVIDERS: ATTEND Internal Medicine Cardiovascular Disease
DX: Z01.818 Encounter for other preprocedural examination (principal); I51.9 Heart disease, unspecified; Z79.01 Long term (current) use of anticoagulants
CPT/HCPCS: 80048; 85027; 85610; 85730; 87635; U0003

== ENCOUNTER 2020-06-15 09:19 | Day surgery (SDC) | payer MEDICARE ==
[2020-06-14 08:42] VITALS: BMI 25.7
[2020-06-15] MEDS ORDERED: PROPOFOL 20 ML ONE (11:38)
[2020-06-15] MEDS ORDERED: Lidocaine 1% PF 5 ML VIAL ONE (11:38)
--- NOTE | 2020-06-15 12:23 | OP ---
DATE OF PROCEDURE: 06/15/2020 PROCEDURE PERFORMED: Electrical cardioversion. REASON FOR PROCEDURE: Mr. Bang is a 70-year-old man with prior history of recurrent atrial arrhythmias, repeat ablations performed in the past. He also had robotically assisted left atrial appendage ligation, closure with a clip. Now, he has recurrence of atypical atrial flutter. He has been started on Multaq. Cardioversion is planned. DESCRIPTION OF PROCEDURE: The patient received propofol by Anesthesia specialist. After adequate level of sedation achieved, a 100-joule synchronized shock converted the patient back to sinus rhythm. CONCLUSION: Successful cardioversion. PLAN: Continue Multaq. Hold off anticoagulation as he has history of left atrial appendage ligation/clip closure, and continue monitoring for recurrence on Multaq. Job ID: [id number]
--- NOTE | 2020-06-17 20:55 | EKG ---
Test Reason : POST CARDIOVERSION Blood Pressure : / mmHG Vent. Rate : 060 BPM Atrial Rate : 060 BPM P-R Int : 178 ms QRS Dur : 086 ms QT Int : 456 ms P-R-T Axes : 022 052 061 degrees QTc Int : 456 ms Normal sinus rhythm Normal ECG No previous ECGs available Confirmed by Krysta GARDNER ([id number]) on 06/17/2020 8:55:18 PM Referred By: [facility] Confirmed By:Krysta GARDNER
== END 2020-06-15 13:00 | disposition home or self-care (01) ==
LOC: CCL 09:19
PROVIDERS: ATTEND Internal Medicine Cardiovascular Disease
PROC: 5A2204Z Restoration of Cardiac Rhythm, Single (ICD-10-PCS; principal; 2020-06-15)
DX: I48.4 Atypical atrial flutter (principal); I48.11 Longstanding persistent atrial fibrillation; M19.90 Unspecified osteoarthritis, unspecified site; I25.10 Atherosclerotic heart disease of native coronary artery without angina pectoris; E11.9 Type 2 diabetes mellitus without complications; E78.5 Hyperlipidemia, unspecified; I10 Essential (primary) hypertension; Z86.73 Personal history of transient ischemic attack (TIA), and cerebral infarction without residual deficits; Z87.891 Personal history of nicotine dependence; Z79.82 Long term (current) use of aspirin; Z79.84 Long term (current) use of oral hypoglycemic drugs; Z79.899 Other long term (current) drug therapy; Z95.5 Presence of coronary angioplasty implant and graft
CPT/HCPCS: 92960; 93005; 93010; J2704

== ENCOUNTER 2021-11-06 11:32 | Observation (INO) | payer OTHER ==
[2021-11-06 18:01] VITALS: BMI 25.4
[2021-11-06] MEDS: Sodium Chloride 0.9% 1,000 ML IV SCH (20:12)
[2021-11-06] MEDS ORDERED: Milk Of Magnesia 30 ML UDCUP PO PRN (20:35)
[2021-11-06] MEDS ORDERED: Tamsulosin HCl 0.4 MG CAP PO SCH (21:00)
[2021-11-06] MEDS: Dronedarone HCl 400 MG TAB PO SCH (21:02)
[2021-11-06] MEDS: Metoprolol Tartrate 50 MG TAB PO SCH (21:03)
[2021-11-06] MEDS: Acetaminophen 500 MG TAB PO SCH (21:04)
[2021-11-07] MEDS: Sodium Chloride 0.9% 1,000 ML IV SCH (05:51)
[2021-11-07] MEDS: Acetaminophen 500 MG TAB PO SCH (05:53)
[2021-11-07] MEDS: Dronedarone HCl 400 MG TAB PO SCH (05:54)
[2021-11-07] MEDS: glipiZIDE 5 MG TAB PO SCH ×2 (05:55→17:47)
[2021-11-07] MEDS: Metoprolol Tartrate 50 MG TAB PO SCH (05:55)
[2021-11-07 07:11] LABS: ALT (SGPT) 22 U/L (8-55); AST (SGOT) 33 U/L (5-34); Albumin 3.5 g/dL (3.4-4.8); Alkaline Phosphatase 71 U/L (40-110); Anion Gap 11 mmol/L (10-20); BUN (Urea Nitrogen) 23 mg/dL (8.4-25.7); Bilirubin, Total 0.5 mg/dL (0.2-1.2); Calc. Creatinine Clearance 38 mL/min (70-130); Calcium 8.6 mg/dL (7.8-10.44); Carbon Dioxide 21 mmol/L (23-31); Chloride 106 mmol/L (98-107); Globulin 2.7 g/dL (2.4-3.5); Glucose 128 mg/dL (83-110); Potassium 4.6 mmol/L (3.5-5.1); Protein, Total 6.2 g/dL (5.8-8.1); Sodium 133 mmol/L (136-145)
[2021-11-07] MEDS ORDERED: Heparin 10,000 UNITS/ 10 ML VIAL ONE (07:40)
[2021-11-07] MEDS ORDERED: Nitroglycerin 100MG/250ML BOT 250 ML ONE (07:41)
[2021-11-07] MEDS ORDERED: Verapamil 5 MG/2 ML VIAL ONE (07:41)
[2021-11-07] MEDS ORDERED: Midazolam HCl 2 mg/2 ml Vial ONE (07:48)
[2021-11-07] MEDS ORDERED: Fentanyl 100 MCG/2 ML VIAL ONE (07:48)
[2021-11-07] MEDS ORDERED: Iopamidol 370 76% 100 ML VIAL ONE (08:52)
[2021-11-07] MEDS ORDERED: Atorvastatin Calcium 40 MG TAB PO SCH (09:00)
[2021-11-07] MEDS ORDERED: Aspirin Chewable 81 MG TAB PO SCH (09:00)
[2021-11-07 16:03] VITALS: BP 167/73; TEMP 97.8
== END 2021-11-07 17:38 | disposition home or self-care (01) ==
LOC: 2SW 15:58
PROVIDERS: ADMIT Internal Medicine Cardiovascular Disease; ATTEND Internal Medicine Cardiovascular Disease
PROC: 4A023N7 Measurement of Cardiac Sampling and Pressure, Left Heart, Percutaneous Approach (ICD-10-PCS; principal; 2021-11-07)
PROC: B2111ZZ Fluoroscopy of Multiple Coronary Arteries using Low Osmolar Contrast (ICD-10-PCS; 2021-11-07)
DX: I25.119 Atherosclerotic heart disease of native coronary artery with unspecified angina pectoris (principal); I25.84 Coronary atherosclerosis due to calcified coronary lesion; T82.855A Stenosis of coronary artery stent, initial encounter; R06.09 Other forms of dyspnea; I48.19 Other persistent atrial fibrillation; I10 Essential (primary) hypertension; E11.9 Type 2 diabetes mellitus without complications; E78.5 Hyperlipidemia, unspecified; G47.33 Obstructive sleep apnea (adult) (pediatric); Q60.0 Renal agenesis, unilateral; Z86.73 Personal history of transient ischemic attack (TIA), and cerebral infarction without residual deficits; Z79.02 Long term (current) use of antithrombotics/antiplatelets; Z79.82 Long term (current) use of aspirin; Z79.84 Long term (current) use of oral hypoglycemic drugs; Z79.899 Other long term (current) drug therapy; Z95.5 Presence of coronary angioplasty implant and graft
CPT/HCPCS: 36415; 36416; 80053; 93458; 99152; 99153; G0378; J1644; J2250; J3010; J7050; Q9967